=== PATIENT | female | born 1985 | race Caucasian/White ===

== ENCOUNTER 2022-01-29 01:27 | Emergency (ER) | payer BC ==
[2022-01-29 02:10] VITALS: BP 190/105; PULSE 110; O2SAT 97
--- NOTE | 2022-01-29 02:19 | ERPHSYRPT ---
- History of Present Illness Time Seen by Provider: 01/29/22 02:10 Source: patient, family Exam Limitations: no limitations Patient Subjective Stated Complaint: LLE edema, redness, pain Triage Nursing Assessment: Pt's LLE and left foot redness, swelling. No open wound. Physician History: This is a morbidly obese 36-year-old white female that has significant lymphedema and noticed some redness in the medial aspect of her left ankle which has spread. It is tender to touch and warm. She has no cough. She has no chest pain. She has had no fevers. Timing/Duration: yesterday Quality: burning, painful Severity: mild Location: feet (Left lateral foot and ankle medial aspect) Possible Causes: other Allergies/Adverse Reactions: Sulfa (Sulfonamide Antibiotics) Allergy (Severe, Verified 01/29/22 01:50) hives, swelling, sob celecoxib [From Celebrex] Allergy (Intermediate, Verified 01/29/22 01:50) hives, sob cephalexin monohydrate [From Keflex] Allergy (Intermediate, Verified 01/29/22 01:50) hives,sob latex Allergy (Intermediate, Verified 01/29/22 01:50) hives, sob [id number] Antimigraine Agents Allergy (Mild, Verified 01/29/22 01:50) DISABLES MY MOTOR FUNCTIONS doxycycline Adverse Reaction (Verified 01/29/22 01:50) Home Medications: Buspirone HCl 5 mg [Buspar 5 mg] 10 mg PO BID PRN PRN 09/05/14 [History] Imipramine HCl [Tofranil] 150 mg PO HS 09/05/14 [History] Trazodone HCl 100 mg PO QHS 08/28/15 [History] Bumetanide 1 mg [Bumex 1 mg] 2 mg PO BID 01/29/22 [History] Dexlansoprazole [Dexlansoprazole Dr] 60 mg PO QHS 01/29/22 [History] Diclofenac Potassium [Cambia] 50 mg PO UD 01/29/22 [History] Erenumab-Aooe [Aimovig Autoinjector] 140 mg SQ UD 01/29/22 [History] Insulin Regular, Human [Humulin R U-500 Kwikpen] 90 - 120 units SQ QHS 01/29/22 [History] Insulin Regular, Human [Humulin R U-500 Kwikpen] 90 units SQ LUNCH 01/29/22 [History] Insulin Regular, Human [Humulin R U-500 Kwikpen] 120 units SQ QAM 01/29/22 [History] Levothyroxine Sodium [Tirosint] 350 mg PO DAILY 01/29/22 [History] Sertraline HCl 50 mg [Zoloft 50 mg Tablet] 100 mg PO DAILY 01/29/22 [History] Tizanidine HCl 4 mg [Zanaflex 4 MG] 4 mg PO Q6H PRN PRN 01/29/22 [History] Hx Tetanus, Diphtheria Vaccination/Date Given: Yes Hx Influenza Vaccination/Date Given: No Hx Pneumococcal Vaccination/Date Given: No Travel Risk - International Travel Have you traveled outside of the country in past 3 weeks: No - Coronavirus Screening Are you exhibiting any of the following symptoms?: No - Vaccine Status Have you recieved a Covid-19 vaccination: No - Review of Systems Constitutional: No Symptoms Eyes: No Symptoms Ears, Nose, & Throat: No Symptoms Respiratory: No Symptoms Cardiac: No Symptoms Abdominal/Gastrointestinal: No Symptoms Genitourinary Symptoms: No Symptoms Musculoskeletal: No Symptoms Skin: Cellulitis (Left medial ankle and foot) Neurological: No Symptoms Psychological: No Symptoms Endocrine: No Symptoms Hematologic/Lymphatic: No Symptoms Immunological/Allergic: No Symptoms All Other Systems: Reviewed and Negative - Past Medical History Pertinent Past Medical History: Yes Neurological History: Migraines ENT History: No Pertinent History Cardiac History: No Pertinent History Respiratory History: Asthma Endocrine Medical History: Diabetes Type II, Hypothyroidism Musculoskeletal History: Degenerative Disk Disease, Osteoarthritis GI Medical History: No Pertinent History History: Other Psycho-Social History: Anxiety, Depression Female Reproductive Disorders: No Pertinent History Other Medical History: PT. HAS HX COMPLEX MIGRAINES THAT MIMIC A STROKE; KIDNEY CA W/ R PARTIAL NEPRHECTOMY 01/13; MUSCULOSKELETAL - Past Surgical History Past Surgical History: Yes Neuro Surgical History: No Pertinent History Cardiac: No Pertinent History Respiratory: No Pertinent History Gastrointestinal: Cholecystectomy Genitourinary: No Pertinent History Musculoskeletal: Orthopedic Surgery Female Surgical History: Section Other Surgical History: KNEES - L ARM - TONSILS/ADENOIDS, PARTIAL NEPHECTOMY - Social History Smoking Status: Former smoker How long have you smoked: 14 Exposure to second hand smoke: No Drug Use: none Patient Lives Alone: No Significant Family History: no pertinent family hx - Female History Hx Last Menstrual Period: September 2021 Hx Now: No - Nursing Vital Signs Nursing Vital Signs: Initial Vital Signs Temperature 98.5 F 01/29/22 02:03 Pulse Rate 110 H 01/29/22 02:03 Respiratory Rate 20 01/29/22 02:03 Blood Pressure 190/105 01/29/22 02:03 O2 Sat by Pulse Oximetry 97 01/29/22 02:03 Pain Scale Pain Intensity 6 - Physical Exam General Appearance: no apparent distress, alert, anxiety, obese Eye Exam: PERRL/EOMI, eyes nml inspection Ears, Nose, Throat Exam: normal ENT inspection, moist mucous membranes Neck Exam: normal inspection, non-tender, supple, full range of motion Respiratory Exam: airway intact, No chest tenderness, No respiratory distress Cardiovascular Exam: tachycardia Gastrointestinal/Abdomen Exam: soft, No tenderness Pelvic Exam: deferred Rectal Exam: not done Back Exam: normal inspection, normal range of motion, No CVA tenderness, No vertebral tenderness Extremity Exam: normal range of motion, pelvis stable, tenderness (Cellulitis medial aspect left ankle and left foot. Patient has significant bilateral chronic lymphedema. No ulceration and no abscess present) Neurologic Exam: alert, oriented x 3, cooperative, group president II-XII nml as tested, normal mood/affect, nml cerebellar function, nml station & gait, sensation nml Skin Exam: other (Cellulitis and lymphedema as stated above) SpO2 Interpretation: normal SpO2: 97 O2 Delivery: Room Air - Course Nursing assessment & vital signs reviewed: Yes Ordered Tests: Medication Summary Discontinued Medications Generic Name Dose Route Start Last Admin Trade Name Gil PRN Reason Stop Dose Admin Hydrocodone Bitart/Acetaminophen 1 tab 01/29/22 02:20 Hydrocodone/Apap 5/325 Mg Tablet PO 01/29/22 02:21 STAT ONE Levofloxacin 500 mg 01/29/22 02:20 Levofloxacin 500 Mg Tablet PO 01/29/22 02:21 STAT ONE - Progress Progress: unchanged Progress Note: 01/29/22 02:18 Patient prefers to have her cellulitis treated as an outpatient. I think this is reasonable. I stressed the importance of following up here in the emergency department or with her primary care provider within 24 hours for reassessment. She is aware that she may need to be placed in the hospital for IV antibiotics if she fails outpatient therapy. Counseled pt/family regarding: diagnosis, need for follow-up - Departure Departure Disposition: Home Clinical Impression: Cellulitis of left leg Condition: Stable Critical Care Time: No Referrals: TAMY ROLLINS [Primary Care Provider] - Follow up/PCP as directed Additional Instructions: Keep left leg elevated above level of heart. Make sure you keep the left lower extremity including the foot and ankle clean and dry and moist to avoid cracks in the skin. Return to emergency department or follow-up with your primary care provider for reassessment within 24 hours. Return sooner to the emergency department if symptoms worsen despite antibiotic treatment. Prescriptions: Levofloxacin [Levaquin 500 MG Tablet] 500 mg PO DAILY #7 tablet
[2022-01-29] MEDS ORDERED: NORCO 5/325 MG PO ONE (02:20)
[2022-01-29] MEDS ORDERED: Levofloxacin 500 MG Tablet PO ONE (02:20)
[2022-01-29] MEDS ORDERED: Levofloxacin 500 MG Tablet ONE (02:33)
[2022-01-29] MEDS ORDERED: NORCO 5/325 MG ONE (02:33)
== END 2022-01-29 02:50 | disposition home or self-care (01) ==
LOC: ED 01:27
DX: L03.116 Cellulitis of left lower limb (principal); I89.0 Lymphedema, not elsewhere classified; E11.9 Type 2 diabetes mellitus without complications; Z79.4 Long term (current) use of insulin; Z79.899 Other long term (current) drug therapy; Z28.310 Unvaccinated for COVID-19
CPT/HCPCS: 99281; A9270-GY

== ENCOUNTER 2022-05-24 20:01 | Emergency (ER) | payer BC ==
--- NOTE | 2022-05-24 20:05 | ERPHSYRPT ---
- History of Present Illness Time Seen by Provider: 05/24/22 20:05 Source: patient Exam Limitations: no limitations Physician History: This is a 36-year-old morbidly obese white female patient who is diabetic and was bowling prior to arrival. When she went to release the ball patient tripped and hurt her right foot and ankle and knee. She has been able to bear weight but it hurts to do so. Patient has significant bilateral lower extremity lymphedema. Patient denies chest pain. She denies shortness of breath. Method of Injury: fell Quality: aching Severity of Pain-Max: mild (To moderate) Severity of Pain-Current: mild (To moderate) Lower Extremities Pain: knee: right, foot: right, ankle: right Modifying Factors: Improves With: movement Associated Symptoms: other (Patient is able to bear weight but hurts to do so.) Allergies/Adverse Reactions: Sulfa (Sulfonamide Antibiotics) Allergy (Severe, Verified 05/24/22 20:29) hives, swelling, sob celecoxib [From Celebrex] Allergy (Intermediate, Verified 05/24/22 20:29) hives, sob cephalexin monohydrate [From Keflex] Allergy (Intermediate, Verified 05/24/22 20:29) hives,sob latex Allergy (Intermediate, Verified 05/24/22 20:29) hives, sob [id number] Antimigraine Agents Allergy (Mild, Verified 05/24/22 20:29) DISABLES MY MOTOR FUNCTIONS doxycycline Adverse Reaction (Verified 05/24/22 20:29) Home Medications: Buspirone HCl 5 mg [Buspar 5 mg] 10 mg PO BID PRN PRN 09/05/14 [History] Imipramine HCl [Tofranil] 150 mg PO HS 09/05/14 [History] Trazodone HCl 100 mg PO QHS 08/28/15 [History] Bumetanide 1 mg [Bumex 1 mg] 2 mg PO BID 01/29/22 [History] Dexlansoprazole [Dexlansoprazole Dr] 60 mg PO QHS 01/29/22 [History] Diclofenac Potassium [Cambia] 50 mg PO UD 01/29/22 [History] Erenumab-Aooe [Aimovig Autoinjector] 140 mg SQ UD 01/29/22 [History] Insulin Regular, Human [Humulin R U-500 Kwikpen] 90 - 120 units SQ QHS 01/29/22 [History] Insulin Regular, Human [Humulin R U-500 Kwikpen] 90 units SQ LUNCH 01/29/22 [History] Insulin Regular, Human [Humulin R U-500 Kwikpen] 120 units SQ QAM 01/29/22 [History] Levothyroxine Sodium [Tirosint] 350 mg PO DAILY 01/29/22 [History] Sertraline HCl 50 mg [Zoloft 50 mg Tablet] 100 mg PO DAILY 01/29/22 [History ] Tizanidine HCl 4 mg [Zanaflex 4 MG] 4 mg PO Q6H PRN PRN 01/29/22 [History] Hx Tetanus, Diphtheria Vaccination/Date Given: Yes Hx Influenza Vaccination/Date Given: No Hx Pneumococcal Vaccination/Date Given: No Travel Risk - International Travel Have you traveled outside of the country in past 3 weeks: No - Coronavirus Screening Are you exhibiting any of the following symptoms?: No Close contact with a COVID-19 positive Pt in past 14-21 Days: No - Vaccine Status Have you recieved a Covid-19 vaccination: No - Review of Systems Constitutional: No Symptoms Eyes: No Symptoms Ears, Nose, & Throat: No Symptoms Respiratory: No Symptoms Cardiac: No Symptoms Abdominal/Gastrointestinal: No Symptoms Genitourinary Symptoms: No Symptoms Musculoskeletal: Fall, Injury (Right knee, right foot and right ankle) Skin: No Symptoms Neurological: No Symptoms Psychological: No Symptoms Endocrine: No Symptoms Hematologic/Lymphatic: No Symptoms Immunological/Allergic: No Symptoms All Other Systems: Reviewed and Negative - Past Medical History Pertinent Past Medical History: Yes Neurological History: Migraines, Other ENT History: No Pertinent History Cardiac History: No Pertinent History Respiratory History: Asthma, Other Endocrine Medical History: Diabetes Type II, Other Musculoskeletal History: Degenerative Disk Disease, Osteoarthritis GI Medical History: No Pertinent History History: Other Psycho-Social History: Anxiety, Depression Female Reproductive Disorders: No Pertinent History Other Medical History: Fibromyalgia, insomnia, thyroid removal (2016, d/t cancer presence), focal nodular hyperplasia, kidney cancer (R, s/p partial nephrectomy ), COVID-19 x2, R knee sx x2, L knee torn meniscus, LUE surgery, (2003), tonsillectomy (1989), addenoidectomy (1989), cholecystectomy (2004) - Past Surgical History Past Surgical History: Yes Neuro Surgical History: No Pertinent History Cardiac: No Pertinent History Respiratory: No Pertinent History Gastrointestinal: Cholecystectomy Genitourinary: No Pertinent History Musculoskeletal: Orthopedic Surgery Female Surgical History: Section Other Surgical History: KNEES - L ARM - TONSILS/ADENOIDS, PARTIAL NEPHECTOMY, THYROIDECTOMY - Social History Smoking Status: Former smoker How long have you smoked: 14 Exposure to second hand smoke: No Drug Use: none Patient Lives Alone: No Significant Family History: no pertinent family hx - Nursing Vital Signs Nursing Vital Signs: Initial Vital Signs Temperature 97.7 F 05/24/22 20:29 Pulse Rate 118 H 05/24/22 20:29 Respiratory Rate 18 05/24/22 20:29 Blood Pressure 178/116 05/24/22 20:29 O2 Sat by Pulse Oximetry 100 05/24/22 20:29 Pain Scale Pain Intensity 8 - Physical Exam General Appearance: no apparent distress, alert, obese Eyes, Ears, Nose, Throat Exam: normal ENT inspection, moist mucous membranes Neck Exam: normal inspection, non-tender, supple, full range of motion Cardiovascular/Respiratory Exam: chest non-tender, no respiratory distress Gastrointestinal/Abdominal Exam: non-tender Back Exam: normal inspection, normal range of motion, No CVA tenderness, No vertebral tenderness Hips Exam: bilateral: non-tender, normal inspection, normal range of motion, no evidence of injury Legs Exam: bilateral leg: non-tender, normal inspection, normal range of motion, no evidence of injury Knees Exam: right knee: soft tissue tenderness, left knee: non-tender, bilateral knee: normal inspection, normal range of motion, no evidence of injury Ankle Exam: right ankle: soft tissue tenderness, left ankle: non-tender, bilateral ankle: normal inspection, normal range of motion, no evidence of injury Foot Exam: right foot: soft tissue tenderness, left foot: non-tender, bilateral foot: normal inspection, normal range of motion, no evidence of injury Neuro/Tendon Exam: normal sensation, normal motor functions, normal tendon functions Mental Status Exam: alert, oriented x 3, cooperative Skin Exam: normal color, warm, dry SpO2 Interpretation: normal O2 Delivery: Room Air - Course Nursing assessment & vital signs reviewed: Yes Ordered Tests: Active Orders 24 hr Category Date Time Status ANKLE (3 VIEWS) Stat Exams 05/24/22 20:49 Taken FOOT (MINIMUM 3 VIEWS) Stat Exams 05/24/22 20:49 Taken KNEE (1 OR 2 VIEW) Stat Exams 05/24/22 20:49 Taken - Progress Progress: unchanged Progress Note: 05/24/22 21:15 X-ray right knee shows no acute fracture or dislocation. X-ray of right ankle shows no acute fracture or dislocation. X-ray of right foot shows no acute fracture or dislocation. Counseled pt/family regarding: diagnosis, need for follow-up, rad results - Departure Departure Disposition: Home Clinical Impression: Fall with no significant injury, Knee sprain, Ankle sprain, Foot sprain Condition: Stable Critical Care Time: No Referrals: TAMY ROLLINS [Primary Care Provider] - Follow up/PCP as directed Additional Instructions: Ice bath/pack for foot and ankle pain 3 times a day for the next 48 hours. Ice pack to right knee 3 times a day for the next 48 hours. Wear the Cristiano wrap to the foot and ankle as needed for assistance with pain control. Follow-up at [facility] orthopedic clinic Saturday, May 28, 2022 8 AM if pain in these areas persist. It is a walk-in clinic and you do not need an appointment. If there are no contraindications, may use Tylenol and ibuprofen for pain control. Keep your right lower extremity elevated above the level of your heart when not ambulating. Weightbearing as tolerated
[2022-05-24 20:40] VITALS: O2SAT 100
[2022-05-24 21:05] VITALS: PULSE 105
[2022-05-24 21:54] VITALS: BP 168/110
--- NOTE | 2022-05-24 22:46 | XRAY ---
Indication: Pain following fall. Comparison: None 3 view right ankle demonstrates tiny posterior heel spur. No other bony, articular, or soft tissue abnormalities.
--- NOTE | 2022-05-24 22:46 | XRAY ---
Indication: Pain following fall. Comparison: December 20, 2012 AP/lateral right knee now demonstrates minimal medial joint space narrowing and anterior soft tissue swelling. Again incidental posterior fabella. No other bony, articular, or soft tissue abnormalities.
--- NOTE | 2022-05-24 22:48 | XRAY ---
Indication: Pain following fall. Comparison: None 3 nonweightbearing views right foot demonstrates tiny posterior heel spur. Distal shaft 5th metatarsal demonstrates elongated sclerosis either bone island versus old fracture. No other bony, articular, or soft tissue abnormalities
== END 2022-05-24 21:54 | disposition home or self-care (01) ==
LOC: ED 20:01
DX: S93.401A Sprain of unspecified ligament of right ankle, initial encounter (principal); S93.601A Unspecified sprain of right foot, initial encounter; S83.91XA Sprain of unspecified site of right knee, initial encounter; W18.49XA Other slipping, tripping and stumbling without falling, initial encounter; Y93.54 Activity, bowling; Y92.39 Other specified sports and athletic area as the place of occurrence of the external cause; E11.9 Type 2 diabetes mellitus without complications; Z79.4 Long term (current) use of insulin; Z79.899 Other long term (current) drug therapy; Z28.310 Unvaccinated for COVID-19; Z86.16 Personal history of COVID-19
CPT/HCPCS: 73560; 73610; 73630; 99283

== ENCOUNTER 2023-04-30 09:27 | Day surgery (SDC) | payer BC ==
[2013-02-17 18:49] VITALS: BP 166/96
[2023-04-30] MEDS ORDERED: XYLOCAINE-MPF 1% 5ML SDV IJ ONE (09:28)
[2023-04-30] MEDS ORDERED: Depo-Medrol 40 MG/ML IM ONE (09:28)
[2023-04-30] MEDS ORDERED: Sodium Chloride 0.9(Preservative Free) 10 ML IJ ONE (09:28)
[2023-04-30 09:42] LABS: HCG URINE TEST NEGATIVE (NEGATIVE)
[2023-04-30] MEDS ORDERED: DIPRIVAN 200 MG/20 ML IV ONE ×2 (11:09→11:23)
[2023-04-30] MEDS ORDERED: Lactated Ringers 1,000 ML IV ONE (14:59)
--- NOTE | 2023-04-30 20:59 | XRAY ---
Indication: Lumbar DEBI. Intraoperative fluoroscopy provided for 54 seconds. 3 digital spot image submitted for interpretation demonstrates posterior needle tip projecting posterior to lumbosacral junction. Small amount of contrast injected for needle tip placement. Correlate with intraoperative findings/report.
--- NOTE | 2023-04-30 21:43 | XRAY ---
54 seconds of fluoroscopy was used in surgery for a lumbar DEBI.
== END 2023-04-30 11:45 | disposition home or self-care (01) ==
LOC: SDC-PAIN 09:27
PROVIDERS: ATTEND Psychiatry & Neurology Pain Medicine
DX: M54.16 Radiculopathy, lumbar region (principal); E11.9 Type 2 diabetes mellitus without complications
CPT/HCPCS: 62321; 72100; 77003; 81025; 82947; J1030; J2704; Q9966

== ENCOUNTER 2023-06-18 07:00 | Day surgery (SDC) | payer BC ==
[2013-02-17 18:49] VITALS: BP 166/96
[2023-06-18] MEDS ORDERED: Decadron 4 MG INJ IV ONE (07:01)
[2023-06-18] MEDS ORDERED: XYLOCAINE-MPF 1% 5ML SDV IJ ONE (07:01)
[2023-06-18] MEDS ORDERED: Lactated Ringers 1,000 ML IV ONE (08:55)
[2023-06-18] MEDS ORDERED: DIPRIVAN 200 MG/20 ML IV ONE (09:04)
--- NOTE | 2023-06-18 12:01 | XRAY ---
Indication: Right piriformis injection. Intraoperative fluoroscopy provided for 18 seconds. Single digital spot image submitted for interpretation demonstrates posterior needle tip projecting over the right piriformis. Small amount of contrast injected for needle tip placement. Correlate with intraoperative findings/report.
--- NOTE | 2023-06-18 12:33 | XRAY ---
18 seconds of fluoroscopy was used in surgery for a right piriformis injection.
== END 2023-06-18 09:26 | disposition home or self-care (01) ==
LOC: SDC-PAIN 07:00
PROVIDERS: ATTEND Psychiatry & Neurology Pain Medicine
DX: M79.18 Myalgia, other site (principal); E11.9 Type 2 diabetes mellitus without complications
CPT/HCPCS: 20553; 72170; 77002; 82947; J1100; J2704; Q9966

== ENCOUNTER 2023-09-17 07:55 | Day surgery (SDC) | payer BC ==
[2013-02-17 18:49] VITALS: BP 166/96
[2023-09-17] MEDS ORDERED: Decadron 4 MG INJ IV ONE (07:56)
[2023-09-17] MEDS ORDERED: Sodium Chloride 0.9(Preservative Free) 10 ML IJ ONE (07:56)
[2023-09-17] MEDS ORDERED: LIDOCAINE HCL 1% 50 MG/5 ML VL PF IJ ONE (07:56)
[2023-09-17 08:23] LABS: HCG URINE TEST NEGATIVE (NEGATIVE)
[2023-09-17] MEDS ORDERED: Zofran 4 MG/2 ML VIAL ONE (08:46)
[2023-09-17] MEDS ORDERED: Reglan 10 MG/2 ML ONE (08:47)
[2023-09-17] MEDS ORDERED: Pepcid 20 MG VIAL IV ONE (08:47)
[2023-09-17] MEDS ORDERED: DIPRIVAN 200 MG/20 ML IV ONE (09:29)
[2023-09-17] MEDS ORDERED: Lactated Ringers 1,000 ML IV ONE (11:05)
--- NOTE | 2023-09-17 12:23 | XRAY ---
Indication: Right L4-S1 transforaminal DEBI. Intraoperative fluoroscopy provided for 44 seconds. 10 digital spot image submitted for interpretation demonstrates posterior needle tips projecting over the expected right L4 and L5 nerve roots. Small amount of contrast injected for needle tip placement. Correlate with intraoperative findings/report.
--- NOTE | 2023-09-17 12:24 | XRAY ---
Indication: Right piriformis injection. Intraoperative fluoroscopy provided for 8 seconds. Single digital spot image submitted for interpretation demonstrates posterior needle tip projecting over right piriformis. Small amount of contrast injected for needle tip placement. Correlate with intraoperative findings/report.
--- NOTE | 2023-09-17 12:33 | XRAY ---
8 seconds of fluoroscopy was used in surgery for a right piriformis injection.
--- NOTE | 2023-09-17 12:33 | XRAY ---
44 seconds of fluoroscopy was used in surgery for a right L4-S1 transforaminal DEBI.
== END 2023-09-17 10:00 | disposition home or self-care (01) ==
LOC: SDC-PAIN 07:55
PROVIDERS: ATTEND Psychiatry & Neurology Pain Medicine
DX: M54.16 Radiculopathy, lumbar region (principal); M79.18 Myalgia, other site; E11.9 Type 2 diabetes mellitus without complications
CPT/HCPCS: 20553; 64483; 64484; 72100; 72170; 77002; 77003; 81025; 82947; J1100; J2001; J2405; J2704; Q9966

== ENCOUNTER 2024-01-14 07:33 | Day surgery (SDC) | payer BC ==
[2013-02-17 18:49] VITALS: BP 166/96
[2024-01-14] MEDS ORDERED: Decadron 4 MG INJ IV ONE (07:34)
[2024-01-14] MEDS ORDERED: Sodium Chloride 0.9(Preservative Free) 10 ML IJ ONE (07:34)
[2024-01-14 08:31] LABS: HCG URINE TEST NEGATIVE (NEGATIVE)
[2024-01-14] MEDS ORDERED: DIPRIVAN 200 MG/20 ML IV ONE (09:12)
[2024-01-14] MEDS ORDERED: Lactated Ringers 1,000 ML IV ONE (09:26)
--- NOTE | 2024-01-14 10:34 | XRAY ---
Indication: Right L4-S1 transforaminal DEBI. Intraoperative fluoroscopy provided for 32 seconds. 5 digital spot images submitted for interpretation demonstrates posterior needle tips projecting over the expected right L4 and L5 nerve roots. Small amount of contrast injected for needle tip placement. Correlate with intraoperative findings/report.
--- NOTE | 2024-01-14 10:54 | XRAY ---
32 seconds of fluoroscopy was used in surgery for a right L4-S1 transforaminal DEBI.
== END 2024-01-14 09:40 | disposition home or self-care (01) ==
LOC: SDC-PAIN 07:33
PROVIDERS: ATTEND Psychiatry & Neurology Pain Medicine
DX: M54.16 Radiculopathy, lumbar region (principal); E11.9 Type 2 diabetes mellitus without complications
CPT/HCPCS: 64483; 64484; 72100; 77003; 81025; 82947; J1100; J2704; Q9966

== ENCOUNTER 2024-12-30 10:34 | Day surgery (SDC) | payer BC ==
[2013-02-17 18:49] VITALS: BP 166/96
[2024-12-30] MEDS ORDERED: BUPIVACAINE 0.5% VIAL IJ ONE (10:35)
[2024-12-30] MEDS ORDERED: Depo-Medrol 40 MG/ML IM ONE (10:35)
[2024-12-30 11:09] LABS: HCG URINE TEST NEGATIVE (NEGATIVE)
[2024-12-30] MEDS ORDERED: propofoL IV ONE (12:41)
[2024-12-30] MEDS ORDERED: Xylocaine-Mpf 2% 5 Ml Vial ONE (12:42)
[2024-12-30] MEDS ORDERED: Lactated Ringers 1,000 ML IV ONE (14:31)
--- NOTE | 2024-12-30 15:20 | XRAY ---
Indication: Right SI joint injection. Intraoperative fluoroscopy provided for 8 seconds. Single digital spot image submitted for interpretation demonstrates posterior needle tip projecting over right SI joint. Small amount of contrast injected for needle tip placement. Correlate with intraoperative findings/report. Incidental incompletely visualized lower lumbar fusion hardware
--- NOTE | 2024-12-30 22:12 | XRAY ---
8 seconds of fluoroscopy was used in surgery for a right sacroiliac joint injection.
== END 2024-12-30 13:05 | disposition home or self-care (01) ==
LOC: SDC-PAIN 10:34
PROVIDERS: ATTEND Psychiatry & Neurology Pain Medicine
DX: M46.1 Sacroiliitis, not elsewhere classified (principal); E11.9 Type 2 diabetes mellitus without complications

== ENCOUNTER 2025-03-30 10:05 | Day surgery (SDC) | payer BC ==
[2013-02-17 18:49] VITALS: BP 166/96
[2025-03-30] MEDS ORDERED: Sodium Chloride 0.9(Preservative Free) 10 ML IJ ONE (10:06)
[2025-03-30] MEDS ORDERED: methylPREDNISolone acetate IM ONE (10:06)
[2025-03-30 10:21] LABS: HCG URINE TEST NEGATIVE (NEGATIVE)
[2025-03-30] MEDS ORDERED: propofoL IV ONE ×2 (11:58→12:10)
--- NOTE | 2025-03-30 12:36 | XRAY ---
Indication: Caudal DEBI. Intraoperative fluoroscopy provided for 17 seconds. 5 digital spot image submitted for interpretation demonstrates caudal needle tip projecting mid sacrum. Small amount of contrast injected for needle tip placement. Correlate with intraoperative findings/report.
--- NOTE | 2025-03-30 12:55 | XRAY ---
17 seconds of fluoroscopy was used in surgery for a caudal DEBI.
[2025-03-30] MEDS ORDERED: Lactated Ringers 1,000 ML IV ONE (14:50)
== END 2025-03-30 12:35 | disposition home or self-care (01) ==
LOC: SDC-PAIN 10:05
PROVIDERS: ATTEND Psychiatry & Neurology Pain Medicine
DX: M54.16 Radiculopathy, lumbar region (principal); E11.9 Type 2 diabetes mellitus without complications